=== PATIENT | male | born 1995 | race Two or more races ===

== ENCOUNTER 2023-11-20 05:15 | Day surgery (SDC) | payer OTHER | END 2023-11-20 13:10 | disposition home or self-care (01) | LOC: AMB-ENDOS 05:15 | PROVIDERS: ATTEND Colon & Rectal Surgery | DX: K57.32 Diverticulitis of large intestine without perforation or abscess without bleeding (principal); K64.2 Third degree hemorrhoids; Z20.822 Contact with and (suspected) exposure to COVID-19 ==

== ENCOUNTER 2024-04-26 14:59 | Inpatient (IN) | payer OTHER ==
[~2024-04-26] VITALS: Ht 160 cm; Wt 64.9 kg
[~2024-04-26 14:59] MED LIST: INTESTINEX680 M1 PO; LEVSIN/SL0.125 MG SL; PEPCID AC20 MG PO
--- NOTE | 2024-04-26 15:31 | NUR ---
PACIENTE ALERTA Y ORIENTADO X3. REFIERE DOLOR ABDOMINAL EN AREA DE COLOSTOMIA QUE [place] DE REMOVER LA BOLSA PRESENTO OBSTRUCCION, REFIERE ESTUVO [facility] SEMANA Y PRESENTA MISMOS SINTOMAS [place].
--- NOTE | 2024-04-26 17:11 | NUR ---
PACIENTE EVALUADO POR JAVI MARKIEN ORDENA TRATAMIETNO MEDICO, SE LE ORIENTA A PACIENTE SOBRE EL MISMO Y VERBALIZA ENTENDER, SE LE COLECTAN MUESTRAS, SE CANALIZA Y SE ADMINISTRAN MEDICAMENTOS BAJO MEDIDAS ASEPTICAS, AREA DE VENOPUNCON PATENTE, DIANA DE EDEMA Y ERITEMA. PACIENTE TOLERA MEDICAMENTOS Y NO PRESENTA REACCION ADVERSA. SE LE HACE ENTREGA A PACIENTE CONTRASTE PO Y SE LE ORIENTA SOBRE NOTIFICAR MANNING PRONTO CULMINE LOS MISMOS.
[2024-04-26] MEDS ORDERED: FAMOTIDINE/PF 20 MG/2 ML VIAL IV ONE (17:15)
[2024-04-26] MEDS ORDERED: 0.9 % SODIUM CHLORIDE 500 ML IV ONE (17:15)
[2024-04-26] MEDS ORDERED: KETOROLAC TROMETHAMINE 30 MG VIAL IV ONE (17:15)
[2024-04-26] MEDS ORDERED: ONDANSETRON HCL 2 MG/ML VIAL IV ONE (17:15)
[2024-04-26 17:56] LABS: HEMATOCRIT 42.9 % (39.0-48.0); HEMOGLOBIN 14.6 g/dL (13-16.00); MEAN CELL VOLUME 85.1 fL (80.0-100.00); MEAN CORPUSCULAR HGB CONC 34.1 g/dl (32.0-36.0); PLATELET COUNT 475 K/uL (150-450); RED BLOOD COUNT 5.04 M/uL (4.00-6.00)
[2024-04-26 18:22] LABS: ALBUMIN 3.8 gm/dL (3.4-5.0); BILIRUBIN TOTAL 0.47 mg/dL (0.3-1.2); CALCIUM 9.8 mg/dL (8.5-10.1); CREATININE SERUM 0.9 mg/dL (0.70-1.30); GFR 99.08; POTASSIUM 3.89 mEq/L (3.5-5.1); TOTAL PROTEIN 7.8 gm/dL (6.4-8.2)
[2024-04-26 19:58] LABS: PH,URINE 6.5 (5.0-8.0); URINE APPEARANCE Clear; URINE BILIRRUBIN Negative (NEGATIVE); URINE BLOOD Negative; URINE COLOR Yellow; URINE GLUCOSE Negative (NEGATIVE); URINE LEUKOCYTE Negative; URINE NITRATE Negative; URINE PROTEIN Negative (NEGATIVE); URINE UROBILINOGEN 0.2 E.U./dl
[2024-04-26 20:01] LABS: URINE BACTERIA 8.8 uL (0.0-1933); URINE EPITHELIAL CELLS 1.8 uL (0.0-38.8); URINE RBC 4.8 uL (0.0-20.8); URINE WBC 3.2 uL (0.0-23.2)
[2024-04-26] MEDS ORDERED: CIPROFLOXACIN IN 5 % DEXTROSE 400 MG/200 ML PIGGYBAG IV ONE (22:00)
[2024-04-26] MEDS ORDERED: METRONIDAZOLE/SODIUM CHLORIDE 500 MG/100 ML PIGGYBACK IV ONE (22:00)
[2024-04-26] MEDS ORDERED: ONDANSETRON HCL 4 MG in 0.9 % SODIUM CHLORIDE 50 ML IV PRN (23:00)
[2024-04-26] MEDS ORDERED: ACETAMINOPHEN 500 MG GEL..CAP PO PRN (23:00)
[2024-04-26] MEDS ORDERED: 0.9 % SODIUM CHLORIDE 1,000 ML IV SCH (23:00)
[2024-04-26] MEDS ORDERED: MEPERIDINE HCL/PF 25 MG/ML VIAL IM PRN (23:00)
[2024-04-26] MEDS ORDERED: MEPERIDINE HCL 25 MG/ML AMPUL IM ONE (23:15)
[2024-04-27] MEDS ORDERED: METRONIDAZOLE/SODIUM CHLORIDE 100 ML IV SCH (01:00)
[2024-04-27 02:01] LABS: INR 1.05
[2024-04-27 02:02] LABS: PARTIAL THROMBOPLASTIN TIME 29.5 SECONDS (22.0-34.0)
[2024-04-27] MEDS ORDERED: CIPROFLOXACIN IN 5 % DEXTROSE 200 ML IV SCH (09:00)
[2024-04-27] MEDS ORDERED: FAMOTIDINE/PF 20 MG in 0.9 % SODIUM CHLORIDE 8 ML IV PUSH SCH (09:00)
[2024-04-30] MEDS ORDERED: NA PHOS,M-B/NA PHOS,DI-BA 1 BOTTLE ENEMA RECTAL STA (08:09)
[2024-04-30] MEDS ORDERED: DIPHENHYDRAMINE HCL 50 MG/ML VIAL 1ML IV NR (11:15)
[2024-04-30] MEDS ORDERED: fentaNYL CITRATE 50 MCG/ML AMPUL IV PUSH ONE (11:15)
[2024-04-30] MEDS ORDERED: MIDAZOLAM HCL 2 MG/2 ML VIAL IV ONE (11:15)
[2024-05-01] MEDS ORDERED: POLYETHYLENE GLYCOL 3350 17 GM BLIST.PACK PO SCH (09:00)
[2024-05-02] MEDS ORDERED: HYOSCYAMINE SULFATE 0.125 MG TAB.SUBL SL PRN (09:00)
[2024-05-02] MEDS ORDERED: FAMOtidine 20 MG TABLET PO SCH (21:00)
[2024-05-05] MEDS ORDERED: PEG3350/SOD SULF,BICARB,CL/KCL 4,000 ML GALLON PO NR (12:30)
[2024-05-06] MEDS ORDERED: DIPHENHYDRAMINE HCL 50 MG/ML VIAL 1ML IV ONE (11:00)
[2024-05-06] MEDS ORDERED: fentaNYL CITRATE 50 MCG/ML AMPUL IV PUSH ONE (11:00)
[2024-05-06] MEDS ORDERED: MIDAZOLAM HCL 2 MG/2 ML VIAL IV ONE (11:00)
[2024-05-07] MEDS ORDERED: MIRALAX17 GM PO (10:39)
== END 2024-05-07 11:05 | disposition home or self-care (01) | DRG 389 ==
LOC: ER 15:00 → SEC-K 23:15 → SURH 23:15
PROVIDERS: General Practice; Nurse Practitioner Family; ADMIT Colon & Rectal Surgery; ATTEND Colon & Rectal Surgery
PROC: BW21Y0Z Computerized Tomography (CT Scan) of Abdomen and Pelvis using Other Contrast, Unenhanced and Enhanced (ICD-10-PCS; 2024-04-26)
PROC: BW21YZZ Computerized Tomography (CT Scan) of Abdomen and Pelvis using Other Contrast (ICD-10-PCS; 2024-04-26)
PROC: 0D7E8ZZ Dilation of Large Intestine, Via Natural or Artificial Opening Endoscopic (ICD-10-PCS; principal; 2024-04-30)
PROC: 0D7E8ZZ Dilation of Large Intestine, Via Natural or Artificial Opening Endoscopic (ICD-10-PCS; 2024-05-06)
DX: K56.600 Partial intestinal obstruction, unspecified as to cause (principal); K91.858 Other complications of intestinal pouch; K62.4 Stenosis of anus and rectum; K64.1 Second degree hemorrhoids; K52.89 Other specified noninfective gastroenteritis and colitis

== ENCOUNTER 2024-06-24 11:15 | Emergency (ER) | payer OTHER ==
[~2024-06-24] VITALS: Ht 157.5 cm; Wt 62.6 kg
[~2024-06-24 11:15] MED LIST changes: +MIRALAX17 GM PO
[2024-06-24 14:51] LABS: HEMOGLOBIN 16.6 g/dL (13-16.00); MEAN CELL VOLUME 83.9 fL (80.0-100.00); MEAN CORPUSCULAR HGB CONC 34.6 g/dl (32.0-36.0); PLATELET COUNT 312 K/uL (150-450); RED BLOOD COUNT 5.72 M/uL (4.00-6.00); RED CELL DISTRIBUTION WIDTH 13.2 % (11.5-14.5)
[2024-06-24 15:11] LABS: ALBUMIN 4.1 gm/dL (3.4-5.0); BILIRUBIN TOTAL 0.58 mg/dL (0.3-1.2); CALCIUM 9.7 mg/dL (8.5-10.1); CREATININE SERUM 0.95 mg/dL (0.70-1.30); GFR 93.09; POTASSIUM 4.38 mEq/L (3.5-5.1); TOTAL PROTEIN 8.1 gm/dL (6.4-8.2)
[2024-06-24 15:52] LABS: PH,URINE 5.5 (5.0-8.0); URINE APPEARANCE Clear; URINE BILIRRUBIN Negative (NEGATIVE); URINE BLOOD Trace; URINE COLOR Yellow; URINE GLUCOSE Negative (NEGATIVE); URINE KETONE Negative (NEGATIVE); URINE LEUKOCYTE Negative; URINE NITRATE Negative; URINE PROTEIN Negative (NEGATIVE); URINE UROBILINOGEN 0.2 E.U./dl
[2024-06-24 15:55] LABS: URINE BACTERIA 7.5 uL (0.0-1933); URINE RBC 12.8 uL (0.0-20.8); URINE WBC 1.8 uL (0.0-23.2)
[2024-06-24 16:08] LABS: URINE EPITHELIAL CELLS 1.3 uL (0.0-38.8)
== END 2024-06-24 18:10 | disposition home or self-care (01) ==
LOC: ER 11:16
PROVIDERS: Emergency Medicine
DX: R10.9 Unspecified abdominal pain (principal)

== ENCOUNTER 2025-09-17 22:55 | Emergency (ER) | payer OTHER ==
[~2025-09-17] VITALS: Ht 160 cm; Wt 71.2 kg
[2025-09-18] MEDS ORDERED: PROMETHAZINE HCL 50 MG/ML AMPUL IM STA (00:38)
[2025-09-18] MEDS ORDERED: HYOSCYAMINE SULFATE 0.125 MG TAB.SUBL SL STA (00:41)
[2025-09-18] MEDS ORDERED: 0.9 % SODIUM CHLORIDE 1,000 ML IV ONE (00:45)
[2025-09-18] MEDS ORDERED: HYOSCYAMINE SULFATE 0.125 MG TAB.SUBL ONE (01:15)
[2025-09-18 01:52] LABS: BASO % 0.3 % (0.1-1.2); EOS # 0.01 (0.04-0.54); EOS % 0.1 % (0.7-7.0); LYMPH # 0.95 (1.18-3.74); LYMPH % 6.8 % (19.3-53.1); MEAN PLATELET VOLUME 10.50 fl (9.4-12.4); MONO # 0.62 (0.24-0.82); MONO % 4.4 % (4.7-12.5); NEUT # 12.39 (1.56-6.13); NEUT % 88.0 % (34.0-71.1); RED CELL DISTRIBUTION WIDTH 11.5 % (11.6-14.4)
[2025-09-18 02:20] LABS: INR 1.08
[2025-09-18 03:04] LABS: ALT/SGPT 40.0 U/L (12-78); AST/SGOT 10.0 U/L (15-37); BILIRUBIN TOTAL 0.86 mg/dL (0.3-1.2); BILIRUBIN,CONJUGATED 0.2 mg/dL (0.0-0.2); BUN CREA RATIO 16.0 (7.0-25.0); CREATININE SERUM 1.13 mg/dL (0.70-1.30); GFR 75.2; GLOBULINA 3.3 G/DL (2.4-3.5); GLUCOSE FASTING 119.0 mg/dL (65-100); OSMOLALITY SERUM 282.0 MOSM/KG (275-295)
[2025-09-18] MEDS ORDERED: ZOFRAN8 MG PO (07:36)
[2025-09-18] MEDS ORDERED: LEVSIN/SL0.125 MG SL (07:36)
== END 2025-09-18 08:12 ==
LOC: ER 22:56
PROVIDERS: General Practice
DX: R10.84 Generalized abdominal pain (principal); R14.0 Abdominal distension (gaseous); Z87.09 Personal history of other diseases of the respiratory system